=== PATIENT | female | born 1985 | race African-American/Black ===

== ENCOUNTER 2022-09-28 18:52 | Emergency (ER) | payer OTHER, MEDICAID ==
[~2022-09-28] VITALS: Ht 180.3 cm; Wt 107.0 kg
[2022-09-28 19:42] VITALS: BP_SYST 138
[2022-09-28] MEDS ORDERED: HYDR-3917 PO ×2 (23:15→23:17)
[2022-09-28] MEDS ORDERED: IBUP-1971 PO (23:15)
[2022-09-28 23:25] VITALS: BP_SYST 138
== END 2022-09-28 23:25 | disposition home or self-care (01) ==
LOC: SED 18:52
DX: S13.4XXA Sprain of ligaments of cervical spine, initial encounter (principal); S33.5XXA Sprain of ligaments of lumbar spine, initial encounter; Z79.899 Other long term (current) drug therapy; V89.2XXA Person injured in unspecified motor-vehicle accident, traffic, initial encounter; Y93.89 Activity, other specified; Y92.89 Other specified places as the place of occurrence of the external cause; Y99.8 Other external cause status
CPT/HCPCS: 72040-TC; 72100-TC; 72125-TC; 76376; 81025; 99284

== ENCOUNTER 2023-07-07 21:09 | Emergency (ER) | payer MEDICAID, OTHER ==
[~2023-07-07] VITALS: Ht 180.3 cm; Wt 104.3 kg
[~2023-07-07 21:09] MED LIST: HYDR-3917 PO; IBUP-1971 PO
[2023-07-07 21:30] VITALS: BP_SYST 146; PULSE 86; RESP 17; TEMP 98; O2SAT 97
[2023-07-07] MEDS ORDERED: DOXY100C5 PO (22:23)
== END 2023-07-07 23:12 | disposition home or self-care (01) ==
LOC: SED 21:09
DX: L73.2 Hidradenitis suppurativa (principal); L02.411 Cutaneous abscess of right axilla; Z79.899 Other long term (current) drug therapy
CPT/HCPCS: 99283